=== PATIENT | female | born 2000 | race Caucasian/White ===

== ENCOUNTER 2020-09-03 06:00 | Day surgery (SDC) | payer OTHER ==
[~2020-09-03] VITALS: Ht 162.6 cm; Wt 68.2 kg
[~2020-09-03 06:00] MED LIST: CALCIUM500 MG PO; DEPO-ESTRADIO5 MG/ML IM; MOBIC15 MG PO
[2020-09-03] MEDS ORDERED: FEM-CAL CITRAT1 EACH PO (06:17)
[2020-09-03] MEDS ORDERED: CLARITIN10 M2 PO (06:19)
--- NOTE | 2020-09-03 09:51 | NUR ---
09/03/20 0951 Nichole Jasso 0944 PT ARRIVED TO PACU ON 6L VIA MASK, RESP EVEN AND UNLABORED WITH ORAL AIRWAY IN PLACE. PT SHIVERING AND WARM BLACKETS PLACED. 926 PT WAKES AND STARTS CRYING AND MOANING, ORAL AIRWAY REMOVED. PT REPORTS "IT HURTS AND I AM GOING TO THROW UP." NAUSEA AND PAIN MEDICATION GIVEN PER EMAR. 928 WARM AIR PLACED UNDER BLACKETS. O2 MASK REMOVED. 941 PT CONTINUES TO CRY OFF AND ON AND REPORTS NO CHANGE IN PAIN, RATES PAIN 10/10. PAIN MEDICATION GIVEN. RN ENCOURAGES DEEP BREATHING. PT REPORTS NAUSEA IS GONE. 48 PT RESTING WITH EYES CLOSED, HR DECREASED AND NO MOANING OR CRYING NOTED. O2 SAT 100% WITH RESP EVEN AND UNLABORED.
--- NOTE | 2020-09-03 10:40 | NUR ---
1030: PT ARRIVES TO DS RM 6 FROM PACU AWAKE AND ALERT. PT DENIES NAUSEA AND WOULD LIKE SIPS OF WATER "MY THROAT IS SO DRY." PT STATES PAIN 6/10 " LONG I DON'T MOVE OR LAUGH OR TALK." FATHER AT BEDSIDE, PROVIDED PAPER SCRIPT TO TAKE TO PHARMACY. DC CRITERIA EXPLAINED TO PT, CALL LIGHT WITHIN REACH. AMENA KRISHNAMURTHY PLACED ON WARM UNDER BLANKETS.
--- NOTE | 2020-09-03 10:48 | NUR ---
PT TOLERATES CRACKERS AND PUDDING WITH NO NAUSEA. PT REQUESTS PERSONAL CELL PHONE, CALL LIGHT WITHIN REACH.
[2020-09-03] MEDS ORDERED: PERCOCET 5-3251 EACH PO (11:11)
[2020-09-03] MEDS ORDERED: IBUPROFEN800 MG PO (11:15)
[2020-09-03] MEDS ORDERED: ONDANSETRON ODT8 MG PO (11:18)
--- NOTE | 2020-09-03 11:47 | NUR ---
[id number]: PT USES CALL LIGHT WITH URGE TO VOID. THIS RN ASSISTS PT UPRIGHT IN BED AND PT ENCOURAGED TO STAND AT SIDE OF BED PRIOR TO AMBULATION. PT DENIES NAUSEA OR DIZZINESS WITH POSITION CHANGE, HAS STEADY GAIT TO BATHROOM WITH RN ASSIST. PT STATES PAIN WITH WALKING AND IS SLIGHTLY HUNCHED FORWARD. PT ABLE TO VOID APPROX 200 MLS YELLOW URINE WITH NO PROBLEMS. PT BACK TO DS RM 6 TO GET DRESSED, ENCOURAGED TO OPEN CURTAIN WHEN FINISHED. PT FATHER BACK TO DS RM 6 FROM PHARMACY AT THIS TIME. 1130: DC INSTRUCTIONS PRESENTED TO PT AND FATHER, PT DOES NOT HAVE ANY FURTHER QUESTIONS. IV REMOVED WNL. PT DC VIA WC FROM DS RM 6 TO FATHER'S VEHICLE AT MAIN HOSPITAL ENTRANCE TO HOME.
--- NOTE | 2020-09-04 17:45 | OR ---
[facility] [address] [place], [place] [address] Signed DATE OF OPERATION: 09/03/2020 SURGEON: Crista Altamirano MD INTEGRITY ASSESSOR: Moshe Whitt DO PREOPERATIVE DIAGNOSIS: Right ovarian dermoid. POSTOPERATIVE DIAGNOSIS: Right ovarian dermoid. PROCEDURE: Mini-laparotomy with resection right ovarian dermoid. ANESTHESIA: General ET. ESTIMATED BLOOD LOSS: 25 mL. DRAINS: None. INDICATIONS AND FINDINGS: The patient is a 20-year-old female, 0, who currently uses Depo for control had a recent episode of abdominal pain, which took her to the emergency room in [place] and she was diagnosed with a right ovarian dermoid, measuring 6 cm. Since then, she has had intermittent sharp pain, but nothing persistent. The decision was made to proceed with removal of the dermoid with the hope to obtain as much ovarian tissue as possible, given her age and lack of children. At the time of surgery, exam under anesthesia revealed an enlarged right ovary consistent with a dermoid slightly anterior to the uterus. The left adnexa was negative. On entering the abdomen, the uterus and the left ovary were completely normal. The right ovary was almost completely replaced with dermoid with sebaceous material and hair noted. DESCRIPTION OF PROCEDURE: The patient was prepped and draped in the supine position. A small Pfannenstiel incision was made with a knife and carried down through the fascia. The incision was Electronically Signed By: CRISTA ALTAMIRANO MD 09/04/20 1745 PATIENT NAME: NATHANAEL MONTILLA OPERATIVE REPORT DATE OF : [birth year] REPORT #: [id number] PHYSICIAN: CRISTA ALTAMIRANO MD PCP: LUIS ALFREDO HUNG MD REPORT IS CONFIDENTIAL AND NOT TO BE RELEASED WITHOUT AUTHORIZATION [facility] [address] [place], [place] [address] Signed extended laterally. The inferior and superior fascial flaps were then created. The muscles were bluntly divided and the peritoneum opened sharply and extended bluntly. Following this, the ovary was palpated. The small Bret retractor was then placed in the incision and the right ovary was brought into view. Laps were placed around the base of the ovary to avoid intraabdominal spillage should this occur. An incision was made over the surface of the ovary with a knife in an attempt to remove the cyst intact. However, the ovarian cortex was extremely thin and the cyst was entered with extrusion of some sebaceous material and hair. Because of this, the incision was extended more completely and the cyst evacuated completely to decrease the chances of further spillage. Following this, the incision was irrigated and the lap tapes were changed several times as well as removal of any instruments that were contaminated. Following this, the edges of the ovarian stroma were grasped and a combination of blunt and sharp dissection was used to remove the cyst wall from the ovary. The cyst extended to the base of the ovary with removal of all of this tissue. The remaining ovarian tissue was rechecked to be sure that there was no remaining cyst wall remnants. Following this, there were some bleeding points at the base of the ovary. These were controlled with cautery. The deep space of the ovary was closed with a pursestring suture of 2-0 Vicryl. The cortex of the ovary was then closed with a suture of 3-0 Vicryl inverting the edges to retain as much ovarian tissue as possible. The great majority of the ovarian cortex was closed in this way, but there was a separate portion that required separate closure done in the same manner. A few imbricating stitches were then placed to avoid any raw surfaces which may increase adhesion formation. Following this, the abdomen was copiously irrigated with approximately 8 L of fluid until the fluid was completely clear and there was no evidence of any oil droplets or any other abnormalities in the fluid. The ovary itself appeared completely hemostatic. However, in an effort to avoid any further adhesion formation, the surface of the ovary was coated in Tisseel. Preparations were then made for closure. The peritoneum was identified and was closed with a running suture of 3-0 Vicryl. The muscles were not reapproximated. The bleeding points were controlled with cautery. The fascia was then closed from each angle to the midline with running suture of 0 Vicryl. The subcu space was irrigated and bleeding points controlled with cautery. The deep space was closed with interrupted sutures of 3-0 Vicryl. The skin was closed with a subcuticular suture of 4-0 Vicryl Rapide. This was followed by Mastisol and Steri-Strips. The incision was injected with 10 mL of 0.5% Marcaine plain at the end of the procedure. All sponge and needle counts were correct. She tolerated procedure well and was taken to the recovery room in good condition. Crista Altamirano MD Electronically Signed By: CRISTA ALTAMIRANO MD 09/04/20 1745 PATIENT NAME: NATHANAEL MONTILLA OPERATIVE REPORT DATE OF : [birth year] REPORT #: [id number] PHYSICIAN: CRISTA ALTAMIRANO MD PCP: LUIS ALFREDO HUNG MD REPORT IS CONFIDENTIAL AND NOT TO BE RELEASED WITHOUT AUTHORIZATION [place] [id number] [place] [address] Signed PJW/MODL /[id number] cc: MD Moshe Gimenez DO Copies: LUIS ALFREDO HUNG MD, JAMES D DO ~ Electronically Signed By: CRISTA ALTAMRIANO MD 09/04/20 1745 PATIENT NAME: NATHANAEL MONTILLA OPERATIVE REPORT DATE OF : [birth year] REPORT #: [id number] PHYSICIAN: CRISTA ALTAMIRANO MD PCP: LUIS ALFREDO HUNG MD REPORT IS CONFIDENTIAL AND NOT TO BE RELEASED WITHOUT AUTHORIZATION
--- NOTE | 2020-09-17 15:34 | PATH ---
[facility] [address] [facility] [place] [address] Signed THIS IS AN AMENDED REPORT SPECIMEN(S): A RIGHT OVARIAN DERMOID SPECIMEN SOURCE: A. RIGHT OVARIAN DERMOID CLINICAL HISTORY: Benign neoplasm of right ovary REASON FOR AMENDMENT: To change the specimen site from "Ovary, right, oophorectomy:" in the diagnosis line of the report. Per Dr. Altamirano, the entire right ovary was not removed. All changes are underlined. The diagnosis is unchanged. 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 COMMENT: As part of [facility] [employer]' Quality Improvement Program, this case was reviewed by another member of our pathology staff. NAL:cml:C2NR MICROSCOPIC EXAMINATION: Histologic sections of all submitted blocks are examined by light microscopy. These findings, together with the gross examination, support the pathologic diagnosis. GROSS DESCRIPTION: The specimen, labeled "SB, A," and designated on the requisition "right ovary dermoid," is received in formalin and consists of 9 g, previously incised, 4.6 x 3.4 x 2.9 cm upon reconstruction, estrada-white, smooth inner walled cystic structure without contents due to previous incision. Additionally the cystic structure has an adherent, polypoid, 4.2 x 3.1 x 1.9 cm estrada, rubbery tissue piece covered in possible skin and hair. The polyp is cross-sectioned to reveal yellow adipose tissue with focal areas of slight estrada-white discoloration. The polyp is consistent with a possible Rokitansky nodule. An additional discrete mass/lesions is not grossly identified. PATIENT NAME: NATHANAEL MONTILLA PATHOLOGY DATE OF : [birth year] REPORT #: [id number] PHYSICIAN: GOKUL RAZA PCP: LUIS ALFREDO HUNG MD REPORT IS CONFIDENTIAL AND NOT TO BE RELEASED WITHOUT AUTHORIZATION [facility] [address] [place] [address] Signed Pharmacist In Charge Owner sections are submitted in three cassettes (A1-A3). AI (under the direct supervision of a pathologist) The Gross Description was prepared using a voice recognition system. The report was reviewed for accuracy; however, sound-alike word errors, addition and/or deletions may occur. If there is any question about this report, please contact Client Services. PERFORMING LABORATORY: The technical component was performed by [facility] [address] (Main [employer] Cashier: Tiara Yee MD; CLIA# [id number]). Professional interpretation was performed by [employer] [facility], [address] [address] (CLIA# [id number]). Diagnostician: Debbie Segura MD Pathologist Electronically Signed 09/17/2020 Copies: ~ PATIENT NAME: NATHANAEL MONTILLA PATHOLOGY DATE OF : 99 REPORT #: [id number] PHYSICIAN: GOKUL RAZA PCP: LUIS ALFREDO HUNG MD REPORT IS CONFIDENTIAL AND NOT TO BE RELEASED WITHOUT AUTHORIZATION
== END 2020-09-03 11:33 | disposition home or self-care (01) ==
LOC: DS 06:00
PROVIDERS: ATTEND Obstetrics & Gynecology
PROC: 0UB00ZZ Excision of Right Ovary, Open Approach (ICD-10-PCS; principal; 2020-09-03 06:45)
DX: D27.0 Benign neoplasm of right ovary (principal); G43.909 Migraine, unspecified, not intractable, without status migrainosus
CPT/HCPCS: 00840; J0131; J0330; J1100; J1885; J2250; J2405; J2704; J2765; J3010; J7121